=== PATIENT | male | born 1935 | race Caucasian/White ===

== ENCOUNTER 2018-03-18 15:56 | Observation (INO) ==
--- NOTE | 2018-03-18 16:37 | XR ---
EXAM DATE: 03/18/2018 4:31 PM EDT AGE/SEX: 82 years / Male INDICATIONS: . Syncope. CLINICAL DATA: This is the patient's initial encounter. Patient reports that signs and symptoms have been present for 1 day and indicates a pain score of 0/10. MEDICAL/SURGICAL HISTORY: None. None. COMPARISON: No prior exams available for comparison. FINDINGS: PA and lateral views of the chest demonstrate the lungs to be symmetrically aerated without evidence of mass, infiltrate or effusion. The cardiomediastinal contours are unremarkable. Osseous structures are intact. CONCLUSION: Negative examination. Electronically signed by: Jatinder Li MD 03/18/2018 4:35 PM EDT
[2018-03-18 16:47] LABS: Baso % (Auto) 0.8 % (0.0-2.0); Eos # (Auto) 0.1 th/mm3 (0.0-0.4); Eos % (Auto) 2.5 % (0.0-4.0); Hematocrit 22.4 % (39.0-51.0); Hemoglobin 7.8 gm/dL (13.0-17.0); Lymph # (Auto) 0.8 th/mm3 (1.0-4.8); Lymph % (Auto) 17.7 % (9.0-44.0); Mean Corpuscular HGB Conc 34.8 % (32.0-36.0); Mean Corpuscular Hemoglobin 31.5 pg (27.0-34.0); Mean Corpuscular Volume 90.7 fL (80.0-100.0); Mean Platelet Volume 8.3 fL (7.0-11.0); Mono # (Auto) 0.6 th/mm3 (0.0-0.9); Mono % (Auto) 13.4 % (0.0-8.0); Neut # (Auto) 2.8 th/mm3 (1.8-7.7); Neut % (Auto) 65.6 % (16.0-70.0); Platelet Count 119 th/mm3 (150-450); Red Blood Count 2.47 mil/mm3 (4.50-5.90); Red Cell Distribution Width 13.3 % (11.6-17.2); White Blood Count 4.3 th/mm3 (4.0-11.0)
--- NOTE | 2018-03-18 16:49 | CT ---
EXAM DATE: 03/18/2018 4:39 PM EDT AGE/SEX: 82 years / Male INDICATIONS: Headaches. CLINICAL DATA: This is the patient's initial encounter. Patient reports that signs and symptoms have been present for 1 day and indicates a pain score of 7/10. MEDICAL/SURGICAL HISTORY: None. None. RADIATION DOSE: 40.73 CTDI (mGy) COMPARISON: No prior exams available for comparison. TECHNIQUE: CT of the head without contrast. Using automated exposure control and adjustment of the mA and/or kV according to patient size, radiation dose was kept as low as reasonably achievable to ob tain optimal diagnostic quality images. DICOM format image data is available electronically for revi ew and comparison. FINDINGS: Noncontrast axial head CT demonstrates the ventricles to be normal in size and configuration with a n ormal sulcal pattern. No acute intracranial hemorrhage, acute cortical infarction, mass or midline sh ift is seen. Posterior fossa structures are unremarkable. Bone windows are unremarkable. CONCLUSION: No evidence of acute intracranial pathology. No masses are identified. . Electronically signed by: Duane Schaffer MD 03/18/2018 4:47 PM EDT
[2018-03-18 17:20] LABS: Activated Partial Thrombo Time 19.2 sec (24.3-30.1); INR 1.1 Ratio; Prothrombin Time 11.3 sec (9.8-11.6)
--- NOTE | 2018-03-18 17:50 | ED ---
HPI General Chief Complaint: Syncope Stated Complaint: Syncope Time Seen by Provider: 03/18/18 15:57 Source: patient and EMS Mode of arrival: EMS Limitations: no limitations History of Present Illness HPI narrative: 81-year-old male with a history of ESRD to is currently going dialysis for the first time since Wednesday comes to the ED for evaluation of syncopal episode today. Per patient he finishes dialysis today with no issues. He has had dialysis since Wednesday almost every day until today. He did fine and went to a store. Per patient when he was in the store he started feeling a severe pain to the back of his head. Per patient he can get comfortable and when he stood up he walked a little bit and then he does not remember what happened. Per patient he does not know how long she was out. Per patient he is having no chest pain or shortness of breath before or after. No palpitations. Per patient currently he has no pain and feels better. He did vomit per ambulance and per patient and he seemed to improve all of his symptoms. Currently completely symptomatic. No history of this in the past. No pain at this time. Per patient when he had the pain the pain was 6 out of 10 on the back of his head. Currently no pain. No numbness, drooling, weakness. Other medical issues. Patient denies any blood thinners or than aspirin. Related Data Home Medications Medication Instructions Recorded Confirmed amlodipine 5 mg PO DAILY 03/18/18 03/18/18 calcitriol 0.25 mcg PO DAILY 03/18/18 03/18/18 cetirizine [Zyrtec] 10 mg PO DAILY 03/18/18 03/18/18 doxazosin 2 mg PO DAILY 03/18/18 03/18/18 fluticasone [Flonase Allergy 1 spray INTRANASAL BID 03/18/18 03/18/18 Relief] levothyroxine 112 mcg PO DAILY 03/18/18 03/18/18 losartan 50 mg PO DAILY 03/18/18 03/18/18 sodium bicarbonate 650 mg PO BID 03/18/18 03/18/18 Allergies Allergy/AdvReac Type Severity Reaction Status Date / Time atenolol Allergy Unknown DIARRHEA Verified 03/18/18 16:18 Review of Systems ROS: all other systems reviewed are negative [facility] Social History Social History Substance History: No History of Abuse Second Hand Smoke Exposure: No Smoking Status: Never smoker How Often Do You Have a Drink Containing Alcohol: Monthly or less Recent Travel in [facility] within the Last 8 Weeks: No Recent Out of Country Travel within the Last 8 Weeks: No Immunization History Tetanus Immunization: Unsure Hx Influenza Vaccine This Season: No Exam Narrative Exam Narrative: GENERAL: Well-appearing SKIN: Focused skin assessment warm/dry. HEAD: Atraumatic. Normocephalic. EYES: Pupils equal and round. No scleral icterus. No injection or drainage. ENT: No nasal bleeding or discharge. Mucous membranes pink and moist. Tongue is midline. No uvula deviation. NECK: Trachea midline. No JVD. CARDIOVASCULAR: Regular rate and rhythm. No murmur appreciated. RESPIRATORY: No accessory muscle use. Clear to auscultation. Breath sounds equal bilaterally. GASTROINTESTINAL: Abdomen soft, non-tender, nondistended. Hepatic and splenic margins not palpable. MUSCULOSKELETAL: No obvious deformities. No clubbing. No cyanosis. No edema. Full range of motion of the upper and lower extremities bilaterally. 2+ pulses bilaterally. Patient has a fistula on the left arm. NEUROLOGICAL: Awake and alert. No obvious cranial nerve deficits. Motor grossly within normal limits. Normal speech. PSYCHIATRIC: Appropriate mood and affect; insight and judgment normal. Course Initial Documented Vital Signs Temperature 97.9 F 03/18/18 16:19 Pulse Rate 80 03/18/18 16:19 Respiratory Rate 16 03/18/18 16:19 Blood Pressure 145/64 H 03/18/18 16:19 Pulse Oximetry 96 03/18/18 16:19 Last Documented Vital Signs Temperature 97.9 F 03/18/18 16:19 Pulse Rate 87 03/18/18 18:20 Respiratory Rate 16 03/18/18 18:20 Blood Pressure 170/102 H 03/18/18 18:20 Pulse Oximetry 99 03/18/18 18:20 Medical Decision Making MDM Narrative Medical decision making narrative: 82-year-old male the presents to the ED for evaluation of syncope. Patient was properly examined and was found to have signs and symptoms consistent with syncope. Unclear etiology at this time. Labs and imaging order. Labs and imaging showed no sign of acute disease alert and what appears to be anemia. Unclear if his knee were all. Family and patient cannot really give me a number as to what his normal H&H is. Patient did have dialysis today. This could be related to that. Unfortunately cannot rule out more significant illnesses patient has never had a syncopal episode before. Because of this at the recommend admission for further evaluation. Family and patient agree with this. Case discussed with the residents who agreed to admit to their service. Medical Screen Exam Complete: Yes Emergency Medical Condition: Yes Differential Diagnosis Differential Diagnosis: Syncope versus CVA versus ACS versus dehydration versus hypotension Medical Records Medical records reviewed: Yes I reviewed the patient's medical records. Lab Data Lab results reviewed: Yes I reviewed the patient's lab results. Lab results narrative: troponin of 0.04, CK negative UA possible UTI Result diagrams: 03/18/18 16:10 03/18/18 16:10 Lab Results 03/18/18 03/18/18 03/18/18 Range/Units 16:10 16:10 16:10 WBC 4.3 (4.0-11.0) th/mm3 RBC 2.47 L (4.50-5.90) mil/mm3 Hgb 7.8 L (13.0-17.0) gm/dL Hct 22.4 L (39.0-51.0) % MCV 90.7 (80.0-100.0) fL MCH 31.5 (27.0-34.0) pg MCHC 34.8 (32.0-36.0) % RDW 13.3 (11.6-17.2) % Plt Count 119 L (150-450) th/mm3 MPV 8.3 (7.0-11.0) fL Neut % (Auto) 65.6 (16.0-70.0) % Lymph % (Auto) 17.7 (9.0-44.0) % [place] % (Auto) 13.4 H (0.0-8.0) % Eos % (Auto) 2.5 (0.0-4.0) % Baso % (Auto) 0.8 (0.0-2.0) % Neut # (Auto) 2.8 (1.8-7.7) th/mm3 Lymph # (Auto) 0.8 L (1.0-4.8) th/mm3 [place] # (Auto) 0.6 (0.0-0.9) th/mm3 Eos # (Auto) 0.1 (0.0-0.4) th/mm3 Baso # (Auto) 0.0 (0.0-0.2) th/mm3 WBC Differential . Differential Comment Auto diff final PT 11.3 (9.8-11.6) sec INR 1.1 Ratio APTT 19.2 L (24.3-30.1) sec Sodium 140 (136-145) meq/L Potassium 3.3 L (3.5-5.1) meq/L Chloride 99 (98-107) meq/L Carbon Dioxide 30.6 (21.0-32.0) meq/L Anion Gap 10 (5-15) meq/L BUN 49 H (7-18) mg/dL Creatinine 3.71 H (0.60-1.30) mg/dL Estimated GFR 16 L (>89) mL/min Random Glucose 134 H (74-106) mg/dL Calcium 9.5 (8.5-10.1) mg/dL Magnesium 2.1 (1.5-2.5) mg/dL Total Bilirubin 0.4 (0.2-1.0) mg/dL AST 12 L (15-37) U/L ALT 13 (12-78) U/L Alkaline Phosphatase 37 L (45-117) U/L Troponin I 0.04 (0.02-0.05) ng/mL Total Protein 7.4 (6.4-8.2) g/dL Albumin 3.5 (3.4-5.0) g/dL Urine Color (Yellw/Straw) Urine Clarity (Clear) Urine pH (5.0-8.5) Ur Specific Home (1.002-1.035) Urine Protein (Neg-Trace) mg/dL Urine Glucose (UA) (Negative) mg/dL Urine Ketones (Negative) mg/dL Urine Occult Blood (Negative) Urine Nitrate (Negative) Urine Bilirubin (Negative) Urine Urobilinogen (Less than 2) mg/dL Ur Leukocyte Esterase (Negative) Urine RBC (0-3) /hpf Urine WBC (0-5) /hpf Hyaline Casts (0-3) /lpf Urine Mucus (Occasional) /lpf Micro UA Comment Ur Microscopic Review Urine Culture Comments 03/18/18 Range/Units 18:25 WBC (4.0-11.0) th/mm3 RBC (4.50-5.90) mil/mm3 Hgb (13.0-17.0) gm/dL Hct (39.0-51.0) % MCV (80.0-100.0) fL MCH (27.0-34.0) pg MCHC (32.0-36.0) % RDW (11.6-17.2) % Plt Count (150-450) th/mm3 MPV (7.0-11.0) fL Neut % (Auto) (16.0-70.0) % Lymph % (Auto) (9.0-44.0) % [place] % (Auto) (0.0-8.0) % Eos % (Auto) (0.0-4.0) % Baso % (Auto) (0.0-2.0) % Neut # (Auto) (1.8-7.7) th/mm3 Lymph # (Auto) (1.0-4.8) th/mm3 [place] # (Auto) (0.0-0.9) th/mm3 Eos # (Auto) (0.0-0.4) th/mm3 Baso # (Auto) (0.0-0.2) th/mm3 WBC Differential Differential Comment PT (9.8-11.6) sec INR Ratio APTT (24.3-30.1) sec Sodium (136-145) meq/L Potassium (3.5-5.1) meq/L Chloride (98-107) meq/L Carbon Dioxide (21.0-32.0) meq/L Anion Gap (5-15) meq/L BUN (7-18) mg/dL Creatinine (0.60-1.30) mg/dL Estimated GFR (>89) mL/min Random Glucose (74-106) mg/dL Calcium (8.5-10.1) mg/dL Magnesium (1.5-2.5) mg/dL Total Bilirubin (0.2-1.0) mg/dL AST (15-37) U/L ALT (12-78) U/L Alkaline Phosphatase (45-117) U/L Troponin I (0.02-0.05) ng/mL Total Protein (6.4-8.2) g/dL Albumin (3.4-5.0) g/dL Urine Color Yellow (Yellw/Straw) Urine Clarity Hazy H (Clear) Urine pH 6.0 (5.0-8.5) Ur Specific Home 1.013 (1.002-1.035) Urine Protein 100 H (Neg-Trace) mg/dL Urine Glucose (UA) 50 (Negative) mg/dL Urine Ketones Negative (Negative) mg/dL Urine Occult Blood Negative (Negative) Urine Nitrate Negative (Negative) Urine Bilirubin Negative (Negative) Urine Urobilinogen Less than 2 (Less than 2) mg/dL Ur Leukocyte Esterase Small H (Negative) Urine RBC 1 (0-3) /hpf Urine WBC 11 H (0-5) /hpf Hyaline Casts 3 (0-3) /lpf Urine Mucus Few H (Occasional) /lpf Micro UA Comment Culture indicated Ur Microscopic Review Not Reportable Urine Culture Comments Culture indicated Imaging Data Attestation: I personally reviewed and interpreted this imaging study as follows : Radiologist's impression: Chest X-Ray 03/18/18 16:12 CONCLUSION: Negative examination. Head CT 03/18/18 16:12 CONCLUSION: No evidence of acute intracranial pathology. No masses are identified. . ECG Data Attestation: I personally reviewed and interpreted this ECG as follows: Interpretation: EKG show sinus rhythm with no sign of acute ischemia or arrhythmia. RBBB noted. No sign of ST elevation or ischemia. Read by me and attending. Discharge Plan Discharge Disposition Patient Disposition: 30 Still Patient Discharge Details Diagnosis: Syncope Physicians Team ED Provider: Prachi Graham ED Midlevel Provider: Moises Ramirez Primary Care Provider: UNKNOWN, Attending Provider: Abena Purvis Discharge Interventions Interventions: Vital Signs Last Done: 03/18/18 18:20 Status ED Status: Admitted Observation Patient
[2018-03-18 18:08] LABS: Alanine Aminotransferase 13 U/L (12-78); Albumin 3.5 g/dL (3.4-5.0); Anion Gap 10 meq/L (5-15); Aspartate Aminotransferase 12 U/L (15-37); Blood Urea Nitrogen 49 mg/dL (7-18); Calcium 9.5 mg/dL (8.5-10.1); Carbon Dioxide 30.6 meq/L (21.0-32.0); Chloride 99 meq/L (98-107); Glomerular Filtration Rate 16 mL/min (>89); Glucose,Random 134 mg/dL (74-106); Magnesium 2.1 mg/dL (1.5-2.5); Potassium 3.3 meq/L (3.5-5.1); Sodium 140 meq/L (136-145)
[2018-03-18 18:18] LABS: Alkaline Phosphatase 37 U/L (45-117); Total Protein 7.4 g/dL (6.4-8.2); Troponin I 0.04 ng/mL (0.02-0.05)
[2018-03-18 19:06] LABS: Bilirubin,Urine Negative (Negative); Clarity,Urine Hazy (Clear); Color,Urine Yellow (Yellw/Straw); Glucose,Urine (UA) 50 mg/dL (Negative); Hyaline Casts,Urine 3 /lpf (0-3); Leukocyte Esterase,Urine Small (Negative); Mucus,Urine Few /lpf (Occasional); Nitrite,Urine Negative (Negative); Specific Gravity,Urine 1.013 (1.002-1.035)
--- NOTE | 2018-03-18 21:58 | P.HPFP ---
History of Present Illness Service: residents' FPITS Primary Care Physician: Dr. Noriega Chief Complaint: syncope History of Present Illness: Patient is an 82-year-old man with HTN, BPH, hypothyroidism, ESRD on HD 5 days a week who follows with card cutter helper Dr. Santacruz who presents with a chief complaint of syncope. Patient had hemodialysis earlier today. He reports no net fluid loss. He felt well after hemodialysis. After hemodialysis, he had lunch with his and noted some neck pain. He then went to the [employer], sat down, felt sweaty, and blacked out. Patient denies full loss of consciousness and reports that he was still able to hear what was going on but was unable to respond to his . Patient denies any chest pain, shortness of breath, racing heart, palpitations, abnormal feeling in his chest prior to syncopal episode. Patient denies any aura or any stroke symptoms. He denies any urinary incontinence or tongue biting. He denies any black or bloody stools. Patient reports he had neck pain up until the syncopal episode. He denies any neck pain at this time. Paramedics reported hypotension and an episode of vomiting. Patient reports that today was his fourth time getting hemodialysis. - Diagnosis (1) Syncope (2) ESRD (end stage renal disease) on dialysis (3) Anemia (4) BPH (benign prostatic hyperplasia) (5) HTN (hypertension) (6) Hypothyroidism (7) Allergic rhinitis Review of Systems Constitutional: No chills, fever, fatigue. No dramatic weight changes or night sweats. ENT: Denies hearing loss or sore throat. EYES: No blurred vision or double vision. ENDO: No cold or heat intolerance. RESPIRATORY: No cough or SOB. HEART: No chest pain or palpitations. GI: Denies any nausea, constipation, dark stools. MUSC: No joint pain or muscle aches. SKIN: No rashes or itching. NEURO: Denies any headaches, weakness, or paresthesias. PSYCH: Denies anxiety or depression. LYMPH: No new lumps or bumps. [facility], LAT[facility] - History History Provided By: Patient - Medical History Medical History: Medical History (Last Updated 03/18/18 @ 21:36 by Ed Church MD, R3) HTN (hypertension) (Chronic) ESRD (end stage renal disease) on dialysis (Chronic) BPH (benign prostatic hyperplasia) (Chronic) Hypothyroidism (Chronic) Anemia (Chronic) CKD (chronic kidney disease) ESRD (end stage renal disease) Hemodialysis access site with mature fistula Kidney stone Prediabetes - Surgical History Surgical History: Surgical History (Last Updated 03/18/18 @ 21:31 by Ed Church MD, R3) History of lithotripsy Status post biopsy of kidney - Family History Family History: Family History (Last Updated 03/18/18 @ 21:32 by Ed Church MD, R3) Mother Diabetes HTN (hypertension) Father Pancreatitis - Tobacco History Second Hand Smoke Exposure: No Smoking Status: Never smoker - Alcohol History How Often Do You Have a Drink Containing Alcohol: Monthly or less - Substance Use History Substance History: No History of Abuse - Travel History Recent Travel in the [place] Within the Last 8 Weeks: No Recent Travel Out of the Country Within the Last 8 Weeks: No - Immunization History Tetanus Immunization: Unsure Hx Influenza Vaccine This Season: No Medications and Allergies Active Medications: Active Medications Amlodipine Besylate (Norvasc) 5 mg PO DAILY [place] Calcitriol (Rocaltrol) 0.25 mcg PO DAILY [facility] Cetirizine HCl (Zyrtec) 10 mg PO DAILY [facility] Doxazosin Mesylate (Cardura) 2 mg PO DAILY [facility] Fluticasone Propionate (Flonase Nasal [place]) 1 spray EACH NARE BID [facility] Levothyroxine Sodium (Synthroid) 112 mcg PO DAILY@0600 [place] Losartan Potassium (Cozaar) 50 mg PO DAILY [place] Sodium Bicarbonate (Sodium Bicarbonate) 650 mg PO BID [place] Allergies Allergy/AdvReac Type Severity Reaction Status Date / Time atenolol Allergy Unknown DIARRHEA Verified 03/18/18 16:18 Home Medications Medication Instructions Recorded Confirmed Type amlodipine 5 mg PO DAILY 03/18/18 03/18/18 History calcitriol 0.25 mcg PO DAILY 03/18/18 03/18/18 History cetirizine [Zyrtec] 10 mg PO DAILY 03/18/18 03/18/18 History doxazosin 2 mg PO DAILY 03/18/18 03/18/18 History fluticasone [Flonase Allergy 1 spray INTRANASAL BID 03/18/18 03/18/18 History Relief] levothyroxine 112 mcg PO DAILY 03/18/18 03/18/18 History losartan 50 mg PO DAILY 03/18/18 03/18/18 History sodium bicarbonate 650 mg PO BID 03/18/18 03/18/18 History Exam Vital signs: Vital Signs 03/18/18 16:19 03/18/18 18:20 Temperature 97.9 F Pulse Rate 80 87 Respiratory Rate 16 16 Blood Pressure 145/64 H 170/102 H Pulse Oximetry 96 99 Intake & Output 03/18/18 03/18/18 03/19/18 06:59 18:59 06:59 Weight 81.647 kg Narrative: GENERAL: Well-nourished, well-developed patient in no apparent distress. SKIN: Warm and dry. EYES: Pupils equal and round. No scleral icterus. No injection or drainage. ENT: Mucous membranes pink and moist. No tonsillar exudate. No nasal bleeding or discharge. CARDIOVASCULAR: Regular rate and rhythm. Grade 3/6 JAZIEL. No gallops or rubs. RESPIRATORY: No accessory muscle use. Clear to auscultation. Breath sounds equal bilaterally. GASTROINTESTINAL: Abdomen soft, non-tender, nondistended. MUSCULOSKELETAL: Extremities without clubbing, cyanosis, or edema. No obvious deformities. Normal gait NEUROLOGICAL: Awake and alert. Cranial nerves II through XII intact. No pronator drift. Five out of 5 muscle strength in the arms and legs. Sensation and motor grossly within normal limits. Normal speech. PSYCHIATRIC: Appropriate mood and affect; insight and judgment normal. Results - Labs Result diagrams: 03/18/18 16:10 03/18/18 16:10 Abnormal lab results 03/18/18 03/18/18 03/18/18 Range/Units 16:10 16:10 16:10 RBC 2.47 L (4.50-5.90) mil/mm3 Hgb 7.8 L (13.0-17.0) gm/dL Hct 22.4 L (39.0-51.0) % Plt Count 119 L (150-450) th/mm3 [place] % (Auto) 13.4 H (0.0-8.0) % Lymph # (Auto) 0.8 L (1.0-4.8) th/mm3 APTT 19.2 L (24.3-30.1) sec Potassium 3.3 L (3.5-5.1) meq/L BUN 49 H (7-18) mg/dL Creatinine 3.71 H (0.60-1.30) mg/dL Estimated GFR 16 L (>89) mL/min Random Glucose 134 H (74-106) mg/dL AST 12 L (15-37) U/L Alkaline Phosphatase 37 L (45-117) U/L Urine Clarity (Clear) Urine Protein (Neg-Trace) mg/dL Ur Leukocyte Esterase (Negative) Urine WBC (0-5) /hpf Urine Mucus (Occasional) /lpf 03/18/18 Range/Units 18:25 RBC (4.50-5.90) mil/mm3 Hgb (13.0-17.0) gm/dL Hct (39.0-51.0) % Plt Count (150-450) th/mm3 [place] % (Auto) (0.0-8.0) % Lymph # (Auto) (1.0-4.8) th/mm3 APTT (24.3-30.1) sec Potassium (3.5-5.1) meq/L BUN (7-18) mg/dL Creatinine (0.60-1.30) mg/dL Estimated GFR (>89) mL/min Random Glucose (74-106) mg/dL AST (15-37) U/L Alkaline Phosphatase (45-117) U/L Urine Clarity Hazy H (Clear) Urine Protein 100 H (Neg-Trace) mg/dL Ur Leukocyte Esterase Small H (Negative) Urine WBC 11 H (0-5) /hpf Urine Mucus Few H (Occasional) /lpf Short CBC 03/18/18 Range/Units 16:10 WBC 4.3 (4.0-11.0) th/mm3 Hgb 7.8 L (13.0-17.0) gm/dL Hct 22.4 L (39.0-51.0) % Plt Count 119 L (150-450) th/mm3 BMP 03/18/18 16:10 Sodium 140 Potassium 3.3 L Chloride 99 Carbon Dioxide 30.6 BUN 49 H Creatinine 3.71 H Calcium 9.5 Cardiac Enzymes 03/18/18 Range/Units 16:10 Troponin I 0.04 (0.02-0.05) ng/mL Liver Function 03/18/18 Range/Units 16:10 Total Bilirubin 0.4 (0.2-1.0) mg/dL AST 12 L (15-37) U/L ALT 13 (12-78) U/L Alkaline Phosphatase 37 L (45-117) U/L Albumin 3.5 (3.4-5.0) g/dL Urine 03/18/18 Range/Units 18:25 Urine Color Yellow (Yellw/Straw) Urine Clarity Hazy H (Clear) Urine pH 6.0 (5.0-8.5) Ur Specific [place] 1.013 (1.002-1.035) Urine Protein 100 H (Neg-Trace) mg/dL Urine Glucose (UA) 50 (Negative) mg/dL - Imaging Impressions Chest X-Ray 03/18/18 16:12 CONCLUSION: Negative examination. Head CT 03/18/18 16:12 CONCLUSION: No evidence of acute intracranial pathology. No masses are identified. . Caprini VTE Risk Assessment Caprini VTE Risk Assessment: Moderate/High Risk (score >= 2) Caprini Risk Assessment Model: Point Value = 1 Point Value = 2 Point Value = 3 Point Value = 5 Age 41-60 Minor surgery BMI > 25 kg/m2 Swollen legs Varicose veins or History of unexplained or recurrent spontaneous Oral contraceptives or hormone replacement Sepsis (< 1 month) Serious lung disease, including pneumonia (< 1 month) Abnormal pulmonary function Acute myocardial infarction Congestive heart failure (< 1 month) History of inflammatory bowel disease Medical patient at bed rest Age 61-74 Arthroscopic surgery Major open surgery (> 45 min) Laparoscopic surgery (> 45 min) Malignancy Confined to bed (> 72 hours) Immobilizing plaster cast Central venous access Age >= 75 History of VTE Family history of VTE Factor V Leiden Prothrombin [id number] Lupus anticoagulant Anticardiolipin antibodies Elevated serum homocysteine Heparin-induced thrombocytopenia Other congenital or acquired thrombophilia Stroke (< 1 month) Elective arthroplasty Hip, pelvis, or leg fracture Acute spinal cord injury (< 1 month) Prophylaxis Regimen: Total Risk Factor Score Risk Level Prophylaxis Regimen 0-1 Low Early ambulation 2 Moderate Order ONE of the following: *Sequential Compression Device (SCD) *Heparin 5000 units SQ BID 3-4 Higher Order ONE of the following medications: *Heparin 5000 units SQ TID *Enoxaparin/Lovenox 40 mg SQ daily (WT < 150 kg, CrCl > 30 mL/min) *Enoxaparin/Lovenox 30 mg SQ daily (WT < 150 kg, CrCl > 10-29 mL/min) *Enoxaparin/Lovenox 30 mg SQ BID (WT < 150 kg, CrCl > 30 mL/min) AND/OR *Sequential Compression Device (SCD) 5 or more Highest Order ONE of the following medications: *Heparin 5000 units SQ TID (Preferred with Epidurals) *Enoxaparin/Lovenox 40 mg SQ daily (WT < 150 kg, CrCl > 30 mL/min) *Enoxaparin/Lovenox 30 mg SQ daily (WT < 150 kg, CrCl > 10-29 mL/min) *Enoxaparin/Lovenox 30 mg SQ BID (WT < 150 kg, CrCl > 30 mL/min) AND *Sequential Compression Device (SCD) Assessment and Plan - Assessment (1) Syncope Code(s): R55 - Syncope and collapse Status: Acute Plan: -Patient had CT of the head and chest x-ray in the emergency department that were normal. EKG show sinus rhythm with no sign of acute ischemia or arrhythmia. RBBB noted. No sign of ST elevation or ischemia. -Observation -ECG and serial troponins -Cardiac telemetry -Monitor intake and output -Monitor vital signs, pulse ox, oxygen as needed -Orthostatic vitals -Echocardiogram -Ultrasound carotids -Trend CBC because of anemia -Careful with blood pressure meds (2) ESRD (end stage renal disease) on dialysis Code(s): N18.6 - End stage renal disease; Z99.2 - Dependence on renal dialysis Status: Chronic Plan: -Nephrology consult appreciated -Continue home medications of calcitriol and sodium bicarb (3) Anemia Code(s): D64.9 - Anemia, unspecified Status: Chronic Plan: -Trend CBC (4) BPH (benign prostatic hyperplasia) Code(s): N40.0 - Benign prostatic hyperplasia without lower urinary tract symptoms Status: Chronic Plan: -Continue doxazosin, hold for hypotension (5) HTN (hypertension) Code(s): I10 - Essential (primary) hypertension Status: Chronic Plan: -Continue home medications of amlodipine, losartan, hold for hypotension (6) Hypothyroidism Code(s): E03.9 - Hypothyroidism, unspecified Status: Chronic Plan: -Continue home medication of levothyroxine (7) Allergic rhinitis Code(s): J30.9 - Allergic rhinitis, unspecified Status: Chronic Plan: -Continue home medications of cetirizine and fluticasone - Assessment and Plan Patient is an 82-year-old man with HTN, BPH, hypothyroidism, ESRD on HD 5 days a week who follows with card cutter helper Dr. Santacruz who presents with a chief complaint of syncope. History and physical consistent with neurocardiogenic, Vasovagal versus versus orthostatic syncope. Plan to rule out other life- threatening etiologies of syncope. Discharge Planning: Patient can be discharged after syncope workup.
[2018-03-18 22:37] LABS: Calcium 9.2 mg/dL (8.5-10.1); Carbon Dioxide 30.6 meq/L (21.0-32.0); Potassium 3.3 meq/L (3.5-5.1)
[2018-03-18 22:40] LABS: Troponin I 0.04 ng/mL (0.02-0.05)
--- NOTE | 2018-03-18 23:53 | US ---
EXAM DATE: 03/18/2018 11:40 PM EDT AGE/SEX: 82 years / Male INDICATIONS: Syncope with associated headache. CLINICAL DATA: This is the patient's initial encounter. Patient reports that signs and symptoms have been present for 1 day and indicates a pain score of 6/10. MEDICAL/SURGICAL HISTORY: Anemia. Renal disease, end stage. Hypertension. Hypothyroidism. R enal stones. Lithotripsy. Renal biopsy. COMPARISON: No prior exams available for comparison. VELOCITY PARAMETERS: ICA/CCA Ratio: Right 1.28 , Left 0.87 ICA: Right 127 cm/sec, Left 110 cm/sec CCA: Right 100 cm/sec, Left 126 cm/sec ECA: Right 124 cm/sec, Left 104 cm/sec Vertebral: Right 122 cm/sec antegrade, Left 39 cm/sec antegrade FINDINGS: Right Carotid: Moderate noncalcified arteriosclerotic plaque is visualized within the proximal ICA. This generates less than 50% stenosis by grayscale analysis.The waveforms are within normal limits. Left Carotid: Mild calcified arteriosclerotic plaque is visualized involving the proximal ICA. The c alcified nature generates shadowing limiting the grayscale analysis. The waveforms are within normal limits. Other: None. CONCLUSION: 1. Bilateral atherosclerotic plaque with less than 50% stenoses of the ICAs. 2. Antegrade flow involving both vertebral arteries. Electronically signed by: Iam Garrido MD 03/18/2018 11:52 PM EDT
[2018-03-19] MEDS: Sodium Bicarbonate 650 MG Tablet PO SCH ×2 (01:00→09:48)
[2018-03-19] MEDS: Heparin - SQ 10,000 UNITS/ML Vial SQ SCH ×3 (01:01→14:26)
[2018-03-19] MEDS ORDERED: Levothyroxine 112 MCG Tablet PO SCH (06:00)
[2018-03-19 07:23] LABS: Baso % (Auto) 0.7 % (0.0-2.0); Eos # (Auto) 0.1 th/mm3 (0.0-0.4); Eos % (Auto) 2.8 % (0.0-4.0); Hematocrit 23.6 % (39.0-51.0); Hemoglobin 8.2 gm/dL (13.0-17.0); Lymph # (Auto) 0.9 th/mm3 (1.0-4.8); Lymph % (Auto) 20.8 % (9.0-44.0); Mean Corpuscular HGB Conc 34.8 % (32.0-36.0); Mean Corpuscular Hemoglobin 31.3 pg (27.0-34.0); Mean Platelet Volume 8.3 fL (7.0-11.0); Mono # (Auto) 0.6 th/mm3 (0.0-0.9); Mono % (Auto) 13.9 % (0.0-8.0); Neut # (Auto) 2.8 th/mm3 (1.8-7.7); Neut % (Auto) 61.8 % (16.0-70.0); Platelet Count 124 th/mm3 (150-450); Red Blood Count 2.62 mil/mm3 (4.50-5.90); Red Cell Distribution Width 13.3 % (11.6-17.2); White Blood Count 4.5 th/mm3 (4.0-11.0)
--- NOTE | 2018-03-19 08:43 | P.PNFP ---
Subjective Interval history: No acute events overnight. Patient seen and examined. Afebrile , vitals stable. Patient states he feels well this morning. Denies lightheadedness, dizziness, chest pain, dyspnea, cough. States he has been ambulatory within room to void. He otherwise denies specific complaints or concerns. <Philipp Packer - 03/19/18 08:43> Results - Labs Result diagrams: 03/19/18 07:00 03/18/18 22:00 <YanivAbena Saige - 03/19/18 11:47> Abnormal lab results 03/18/18 03/18/18 03/18/18 Range/Units 16:10 16:10 16:10 RBC 2.47 L (4.50-5.90) mil/mm3 Hgb 7.8 L (13.0-17.0) gm/dL Hct 22.4 L (39.0-51.0) % Plt Count 119 L (150-450) th/mm3 [place] % (Auto) 13.4 H (0.0-8.0) % Lymph # (Auto) 0.8 L (1.0-4.8) th/mm3 APTT 19.2 L (24.3-30.1) sec Potassium 3.3 L (3.5-5.1) meq/L BUN 49 H (7-18) mg/dL Creatinine 3.71 H (0.60-1.30) mg/dL Estimated GFR 16 L (>89) mL/min Random Glucose 134 H (74-106) mg/dL AST 12 L (15-37) U/L Alkaline Phosphatase 37 L (45-117) U/L Urine Clarity (Clear) Urine Protein (Neg-Trace) mg/dL Ur Leukocyte Esterase (Negative) Urine WBC (0-5) /hpf Urine Mucus (Occasional) /lpf 03/18/18 03/18/18 03/19/18 Range/Units 18:25 22:00 07:00 RBC 2.62 L (4.50-5.90) mil/mm3 Hgb 8.2 L (13.0-17.0) gm/dL Hct 23.6 L (39.0-51.0) % Plt Count 124 L (150-450) th/mm3 [place] % (Auto) 13.9 H (0.0-8.0) % Lymph # (Auto) 0.9 L (1.0-4.8) th/mm3 APTT (24.3-30.1) sec Potassium 3.3 L (3.5-5.1) meq/L BUN 52 H (7-18) mg/dL Creatinine 3.81 H (0.60-1.30) mg/dL Estimated GFR 15 L (>89) mL/min Random Glucose 131 H (74-106) mg/dL AST (15-37) U/L Alkaline Phosphatase (45-117) U/L Urine Clarity Hazy H (Clear) Urine Protein 100 H (Neg-Trace) mg/dL Ur Leukocyte Esterase Small H (Negative) Urine WBC 11 H (0-5) /hpf Urine Mucus Few H (Occasional) /lpf Short CBC 03/18/18 03/19/18 Range/Units 16:10 07:00 WBC 4.3 4.5 (4.0-11.0) th/mm3 Hgb 7.8 L 8.2 L (13.0-17.0) gm/dL Hct 22.4 L 23.6 L (39.0-51.0) % Plt Count 119 L 124 L (150-450) th/mm3 BMP 03/18/18 03/18/18 16:10 22:00 Sodium 140 141 Potassium 3.3 L 3.3 L Chloride 99 100 Carbon Dioxide 30.6 30.6 BUN 49 H 52 H Creatinine 3.71 H 3.81 H Calcium 9.5 9.2 Cardiac Enzymes 03/18/18 03/18/18 03/19/18 Range/Units 16:10 22:00 07:00 Troponin I 0.04 0.04 0.05 (0.02-0.05) ng/mL Liver Function 03/18/18 Range/Units 16:10 Total Bilirubin 0.4 (0.2-1.0) mg/dL AST 12 L (15-37) U/L ALT 13 (12-78) U/L Alkaline Phosphatase 37 L (45-117) U/L Albumin 3.5 (3.4-5.0) g/dL Urine 03/18/18 Range/Units 18:25 Urine Color Yellow (Yellw/Straw) Urine Clarity Hazy H (Clear) Urine pH 6.0 (5.0-8.5) Ur Specific [place] 1.013 (1.002-1.035) Urine Protein 100 H (Neg-Trace) mg/dL Urine Glucose (UA) 50 (Negative) mg/dL <Abena Purvis - 03/19/18 11:47> Abnormal lab results 03/18/18 03/18/18 03/18/18 Range/Units 16:10 16:10 16:10 RBC 2.47 L (4.50-5.90) mil/mm3 Hgb 7.8 L (13.0-17.0) gm/dL Hct 22.4 L (39.0-51.0) % Plt Count 119 L (150-450) th/mm3 [place] % (Auto) 13.4 H (0.0-8.0) % Lymph # (Auto) 0.8 L (1.0-4.8) th/mm3 APTT 19.2 L (24.3-30.1) sec Potassium 3.3 L (3.5-5.1) meq/L BUN 49 H (7-18) mg/dL Creatinine 3.71 H (0.60-1.30) mg/dL Estimated GFR 16 L (>89) mL/min Random Glucose 134 H (74-106) mg/dL AST 12 L (15-37) U/L Alkaline Phosphatase 37 L (45-117) U/L Urine Clarity (Clear) Urine Protein (Neg-Trace) mg/dL Ur Leukocyte Esterase (Negative) Urine WBC (0-5) /hpf Urine Mucus (Occasional) /lpf 03/18/18 03/18/18 03/19/18 Range/Units 18:25 22:00 07:00 RBC 2.62 L (4.50-5.90) mil/mm3 Hgb 8.2 L (13.0-17.0) gm/dL Hct 23.6 L (39.0-51.0) % Plt Count 124 L (150-450) th/mm3 [place] % (Auto) 13.9 H (0.0-8.0) % Lymph # (Auto) 0.9 L (1.0-4.8) th/mm3 APTT (24.3-30.1) sec Potassium 3.3 L (3.5-5.1) meq/L BUN 52 H (7-18) mg/dL Creatinine 3.81 H (0.60-1.30) mg/dL Estimated GFR 15 L (>89) mL/min Random Glucose 131 H (74-106) mg/dL AST (15-37) U/L Alkaline Phosphatase (45-117) U/L Urine Clarity Hazy H (Clear) Urine Protein 100 H (Neg-Trace) mg/dL Ur Leukocyte Esterase Small H (Negative) Urine WBC 11 H (0-5) /hpf Urine Mucus Few H (Occasional) /lpf Short CBC 03/18/18 03/19/18 Range/Units 16:10 07:00 WBC 4.3 4.5 (4.0-11.0) th/mm3 Hgb 7.8 L 8.2 L (13.0-17.0) gm/dL Hct 22.4 L 23.6 L (39.0-51.0) % Plt Count 119 L 124 L (150-450) th/mm3 BMP 03/18/18 03/18/18 16:10 22:00 Sodium 140 141 Potassium 3.3 L 3.3 L Chloride 99 100 Carbon Dioxide 30.6 30.6 BUN 49 H 52 H Creatinine 3.71 H 3.81 H Calcium 9.5 9.2 Cardiac Enzymes 03/18/18 03/18/18 03/19/18 Range/Units 16:10 22:00 07:00 Troponin I 0.04 0.04 0.05 (0.02-0.05) ng/mL Liver Function 03/18/18 Range/Units 16:10 Total Bilirubin 0.4 (0.2-1.0) mg/dL AST 12 L (15-37) U/L ALT 13 (12-78) U/L Alkaline Phosphatase 37 L (45-117) U/L Albumin 3.5 (3.4-5.0) g/dL Urine 03/18/18 Range/Units 18:25 Urine Color Yellow (Yellw/Straw) Urine Clarity Hazy H (Clear) Urine pH 6.0 (5.0-8.5) Ur Specific [place] 1.013 (1.002-1.035) Urine Protein 100 H (Neg-Trace) mg/dL Urine Glucose (UA) 50 (Negative) mg/dL <Philipp Packer - 03/19/18 08:43> - Imaging Impressions Carotid Doppler Study 03/18/18 00:00 CONCLUSION: 1. Bilateral atherosclerotic plaque with less than 50% stenoses of the ICAs. 2. Antegrade flow involving both vertebral arteries. Chest X-Ray 03/18/18 16:12 CONCLUSION: Negative examination. Head CT 03/18/18 16:12 CONCLUSION: No evidence of acute intracranial pathology. No masses are identified. . <Abena Purvis - 03/19/18 11:47> Impressions Carotid Doppler Study 03/18/18 00:00 CONCLUSION: 1. Bilateral atherosclerotic plaque with less than 50% stenoses of the ICAs. 2. Antegrade flow involving both vertebral arteries. Chest X-Ray 03/18/18 16:12 CONCLUSION: Negative examination. Head CT 03/18/18 16:12 CONCLUSION: No evidence of acute intracranial pathology. No masses are identified. . <Philipp Packer - 03/19/18 08:43> Physical Exam Vital signs: Vital Signs 03/18/18 16:19 03/18/18 18:20 03/18/18 20:55 Temperature 97.9 F Pulse Rate 80 87 Respiratory Rate 16 16 Blood Pressure 145/64 H 170/102 H Pulse Oximetry 96 99 98 03/18/18 21:25 03/19/18 00:31 03/19/18 04:00 Temperature 98.5 F Pulse Rate 86 86 95 H Respiratory Rate 20 18 Blood Pressure 150/70 H 186/86 H Pulse Oximetry 99 96 03/19/18 04:29 03/19/18 07:35 03/19/18 07:39 Temperature 98.7 F 98.9 F Pulse Rate 79 77 79 Respiratory Rate 20 12 Blood Pressure 128/59 L 156/68 H Pulse Oximetry 96 96 03/19/18 09:46 Temperature Pulse Rate Respiratory Rate Blood Pressure Pulse Oximetry 96 Intake & Output 03/18/18 03/19/18 03/19/18 18:59 06:59 18:59 Intake Total 220 / 220 Balance 220 / 220 Weight 81.647 kg 81.6 kg Intake: Oral 220 / 220 Other: Date of Last Bowel Movement 03/18/18 Weight On Admission 81.647 kg <Abena Purvis - 03/19/18 11:47> Vital Signs 03/18/18 16:19 03/18/18 18:20 03/18/18 20:55 Temperature 97.9 F Pulse Rate 80 87 Respiratory Rate 16 16 Blood Pressure 145/64 H 170/102 H Pulse Oximetry 96 99 98 03/18/18 21:25 03/19/18 00:31 03/19/18 04:00 Temperature 98.5 F Pulse Rate 86 86 95 H Respiratory Rate 20 18 Blood Pressure 150/70 H 186/86 H Pulse Oximetry 99 96 03/19/18 04:29 03/19/18 07:35 03/19/18 07:39 Temperature 98.7 F 98.9 F Pulse Rate 79 77 79 Respiratory Rate 20 12 Blood Pressure 128/59 L 156/68 H Pulse Oximetry 96 96 Intake & Output 03/18/18 03/19/18 03/19/18 18:59 06:59 18:59 Intake Total 220 / 220 Balance 220 / 220 Weight 81.647 kg 81.6 kg Intake: Oral 220 / 220 Other: Weight On Admission 81.647 kg <KlevernarcisoPhilipp nassar - 03/19/18 08:43> Narrative: GENERAL: Well-nourished, well-developed patient in no apparent distress. SKIN: Warm and dry. EYES: Pupils equal and round. No scleral icterus. No injection or drainage. ENT: Mucous membranes moist. No nasal bleeding or discharge. CARDIOVASCULAR: Regular rate and rhythm. Grade 3/6 JAZIEL. No gallops or rubs. RESPIRATORY: No accessory muscle use. Clear to auscultation. Breath sounds equal bilaterally. GASTROINTESTINAL: Abdomen soft, non-tender, nondistended. MUSCULOSKELETAL: Extremities without clubbing, cyanosis, or edema. No obvious deformities. NEUROLOGICAL: Awake and alert. Cranial nerves grossly intact. Normal speech. PSYCHIATRIC: Appropriate mood and affect; insight and judgment normal. <Philipp Packer - 03/19/18 08:43> Assessment and Plan - Assessment (1) Syncope Code(s): R55 - Syncope and collapse Status: Acute (2) ESRD (end stage renal disease) on dialysis Code(s): N18.6 - End stage renal disease; Z99.2 - Dependence on renal dialysis Status: Chronic (3) Anemia Code(s): D64.9 - Anemia, unspecified Status: Chronic (4) BPH (benign prostatic hyperplasia) Code(s): N40.0 - Benign prostatic hyperplasia without lower urinary tract symptoms Status: Chronic (5) HTN (hypertension) Code(s): I10 - Essential (primary) hypertension Status: Chronic (6) Hypothyroidism Code(s): E03.9 - Hypothyroidism, unspecified Status: Chronic (7) Allergic rhinitis Code(s): J30.9 - Allergic rhinitis, unspecified Status: Chronic <Abena Purvis - 03/19/18 11:47> (1) Syncope Code(s): R55 - Syncope and collapse Status: Acute Plan: -Patient had CT of the head and chest x-ray in the emergency department that were normal. EKG show sinus rhythm with no sign of acute ischemia or arrhythmia. RBBB noted. No sign of ST elevation or ischemia. -Troponins negative x 3 -Telemetry reviewed, no significant concerns -Monitor intake and output -Monitor vital signs, pulse ox, oxygen as needed -Careful with blood pressure medications -Ultrasound carotids showing bilateral atherosclerotic plaque with < 50% stenosis of ICAs -Hgb stable (2) ESRD (end stage renal disease) on dialysis Code(s): N18.6 - End stage renal disease; Z99.2 - Dependence on renal dialysis Status: Chronic Plan: -Nephrology consult appreciated -Continue home medications of calcitriol and sodium bicarb (3) Anemia Code(s): D64.9 - Anemia, unspecified Status: Chronic Plan: Stable (4) BPH (benign prostatic hyperplasia) Code(s): N40.0 - Benign prostatic hyperplasia without lower urinary tract symptoms Status: Chronic Plan: -Continue doxazosin, hold for hypotension (5) HTN (hypertension) Code(s): I10 - Essential (primary) hypertension Status: Chronic Plan: -Continue home medications of amlodipine, losartan, hold for hypotension (6) Hypothyroidism Code(s): E03.9 - Hypothyroidism, unspecified Status: Chronic Plan: -Continue home medication of levothyroxine (7) Allergic rhinitis Code(s): J30.9 - Allergic rhinitis, unspecified Status: Chronic Plan: -Continue home medications of cetirizine and fluticasone <Philipp Packer - 03/19/18 08:50> - Assessment and Plan Patient is an 82-year-old man with HTN, BPH, hypothyroidism, ESRD on HD 5 days a week who follows with privacy compliance manager Dr. Santacruz who presented with a chief complaint of syncope. History and physical consistent with neurocardiogenic, Vasovagal versus versus orthostatic syncope. <Philipp Pacekr - 03/19/18 08:59> - Attending Attestation The exam, history, and the medical decision-making described in the above note were completed with the assistance of the resident physician. I reviewed and agree with the findings presented. I attest that I had a [id number] encounter with the patient on the same day, and personally performed and documented my assessment and findings in the medical record. discussed with him that he almost certainly had a vasovagal episode based on having low BPs when the rescue people checked him and the history is classic. he just started on dialysis so his BPs are lower than the probably were before. there are a few readings with diastolics less than 65 which is associated with syncope and orthostatic hypotension. would recommend orthostatic pressures be taken and decreasing his meds. agree with stopping norvasc and close follow up. discussed with pt that this is a holiday weekend and he will not get an echocardiogram today nor have it read. he feels great and wants to do this as an outpatient. I do not suspect any thrombus at this time as he has such classic sxs. <Abena Purvis - 03/19/18 11:47>
[2018-03-19] MEDS ORDERED: Calcitriol 0.25 MCG Capsule PO SCH (09:00)
[2018-03-19] MEDS ORDERED: amLODIPine 5 MG Tablet PO SCH (09:00)
--- NOTE | 2018-03-19 10:20 | P.PNADD ---
Addendum to Inpatient Note Reason for Addendum: Additional Documentation (Patient is discontinued on his home dose of amlodipine due to low diastolic pressures and EMS report of hypotension.)
--- NOTE | 2018-03-19 15:10 | ECG ---
Date Performed: 03/18/2018 Time Performed: 17:44:13 PTAGE: 82 years EKG: Sinus rhythm WITH FIRST DEGREE AV BLOCK WITH OCCASIONAL VENTRICULAR PREMATURE COMPLEXES RIGHT BUNDLE BRANCH BLOCK ABNORMAL ECG Compared to PREVIOUS TRACING , PVCs are new, ST-T changes laterally are slightly more prominent. PREV IOUS TRACIN08/18/2013 11.30 DOCTOR: Serafin Bose Interpretating Date/Time 03/19/2018 15:10:23
--- NOTE | 2018-03-19 17:14 | MB ---
cc: Claudio Motta MD DATE: 03/19/2018 REASON FOR CONSULTATION: End-stage renal disease management. HISTORY OF PRESENT ILLNESS: This is an 82-year-old male with history of ESRD, on hemodialysis and is followed up with Dr. Santacruz. The patient is currently doing home dialysis training and is getting daily dialysis training. His next planned outpatient dialysis training is on Wednesday. He also has a history of hypertension and BPH. The patient apparently had an episode of syncope after dialysis. He was at a restaurant and started to feel weak and sweaty. He was seen with EMS and brought to the hospital for syncope evaluation. Here he has been evaluated with the primary service and his blood pressures have remained stable. There is a thought that he had some initial hypotension. His Norvasc was held. His CT imaging of the brain was all otherwise negative. His EKG showed sinus rhythm with a right bundle branch block. At this time, the patient is resting in bed comfortably and has no acute complaints. He reports his symptoms have improved. Nephrology was consulted for further evaluation. PAST MEDICAL HISTORY: Includes ESRD on hemodialysis. The patient is doing home dialysis training and follows up with Dr. Santacruz. Also, history of hypertension, BPH, hypothyroidism, anemia, renal stones, prediabetes. PAST SURGICAL HISTORY: Includes lithotripsy, kidney biopsy and left upper extremity AV fistula. FAMILY HISTORY: Diabetes, hypertension, pancreatitis. SOCIAL HISTORY: No alcohol, tobacco or drug use. The patient lives at home with his . MEDICATIONS AT HOME: Include: 1. Amlodipine 5 mg daily. 2. Calcitriol 0.25 mcg daily. 3. Cetirizine 10 mg p.o. daily. 4. Doxazosin 2 mg p.o. daily. 5. Fluticasone 1 spray b.i.d. 6. Synthroid 112 mcg p.o. daily. 7. Losartan 50 mg p.o. daily. 8. Sodium bicarbonate 650 mg p.o. b.i.d. PHYSICAL EXAMINATION: VITAL SIGNS: At time of evaluation, temperature 97.9, pulse 80, respiratory rate 16, blood pressure 145/64, pulse oximetry 96% on room air. GENERAL: Awake, alert, oriented, in no apparent distress. NECK: Soft, supple. CARDIAC: Regular rate and rhythm. LUNGS: Clear to auscultation bilaterally. ABDOMEN: Soft, nontender, nondistended. EXTREMITIES: Left upper extremity fistula with excellent thrill. No lower extremity edema. LABORATORY DATA: White count 4.3, hemoglobin 7.8, hematocrit 22.4, platelet count 119. Sodium 140, potassium 3.3, chloride 99, bicarbonate 30.6, BUN 40, creatinine 3.7, glucose 134. ASSESSMENT AND PLAN: 1. End-stage renal disease. The patient is on home dialysis training. He has a left upper extremity AV fistula with an excellent thrill. At this time volume status and electrolytes are stable, we will plan for next dialysis as an outpatient on Wednesday. If the patient is still here in the hospital we can perform dialysis here. 2. Syncope. The patient has been cleared by primary team. He has negative CT imaging of the brain. EKG showed just stable right bundle block. The plan is for discharge today and outpatient 2-D echo evaluation. It appears his symptoms have resolved and it is possible he may have had some transient hypotension post-dialysis and his Norvasc was held. Continue to monitor with primary service and continue to follow up with outpatient dialysis. 3. Anemia. The patient with a hemoglobin of 7.8. Continue with outpatient Epogen dosing. 4. Benign prostatic hypertrophy. Continue with doxazosin. 5. Hypertension. Amlodipine has been held. Continue to monitor. 6. Hypothyroidism. Continue Synthroid. 7. Allergies. Continue medications. Claudio Motta MD DVP/ct , 01:39 PM , 01:48 PM MTDSrini
--- NOTE | 2018-03-22 08:20 | HM ---
Date Performed: 03/19/2018 Time Performed: 11:38:00 HOOKUP DATE: 03/19/18 11:38:00 AM Sat ANALYSIS START TIME: 03/19/2018 11:43:00 AM ANALYSIS END TIME: 03/20/2018 11:47:00 AM PATIENT AGE: 82 PATIENT HEIGHT PATIENT WEIGHT DRUG LIST PATIENT DIAGNOSIS: acute syncope TEST NARRATIVE: The patient's average heart rate was 82 BPM. No episodes of tachycardia wer e noted. No episodes of bradycardia were noted. No pauses exceeding 2.0 seconds were noted. 2986 ventricular ectopics, which represented 3% of the total beat count, were noted. The highest namita tricular ectopic frequency occurred from 03:00 PM to 04:00 PM Sat. During this time 379 VE(s) occurr ed. Ventricular ectopics were observed as 2875 isolated beat(s), as 50 couplet(s) and as 2 run(s). Some of the ventricular beats occurred in bigeminal cycles. 253 supraventricular ectopics, which represented < 1% of the total beat count, were noted. The highest supraventricular ectopic frequency occurred from 07:00 PM to 08:00 PM Sat. During this time 29 SVE(s) occurred. Multiple episodes of ST depression (defined as -1.0 mm or more) were noted in channel 1. The maximum depression of -2 .8 mm occurred at 09:49:15 PM Sat. Multiple episodes of ST depression (defined as -1.0 mm or more) were noted in channel 2. The maximum depression of -1.8 mm occurred at 09:48:47 PM Sat. Multiple ep isodes of ST depression (defined as -1.0 mm or more) were noted in channel 3. The maximum depressio n of -2.3 mm occurred at 12:38:19 PM Sat. no diary maintained TEST INTERPRETATION: The underlying rhythm is Sinus rhythm with occasional PVC's. Two brief runs of probably atrial tachycardia are recorded, 5 and 13 beats i n duration. No other arrhythmias are seen. Signed by : Víctor Adkins
== END 2018-03-19 15:30 | disposition home or self-care (01) ==
LOC: NEDA 15:56 → NEPC 15:56 → NEPFCDU 23:15
PROVIDERS: ADMIT Family Medicine; ATTEND Family Medicine